=== PATIENT | female | born 1955 | race Caucasian/White ===

== ENCOUNTER 2016-11-10 15:12 | Day surgery (SDC) | payer OTHER ==
[~2016-11-10 15:12] MED LIST: EPINEPHRINE INJ 1 MG/10 ML DISP.SYRIN ONE; FLUMAZENIL INJ 0.5 MG/5 ML VIAL IV ONE; GLUCAGON,HUMAN RECOMB 1 MG INJ ONE; NALOXONE HCL INJ/PF 0.4 MG/1 ML SDV ONE
[2016-11-10] MEDS: MIDAZOLAM 2 MG/2 ML INJ ONE ×3 (16:34→16:43)
[2016-11-10] MEDS: FENTANYL CITRATE INJ/PF 100 MCG/2 ML AMPUL ONE ×2 (16:37→16:48)
--- NOTE | 2016-11-10 17:17 | Operative Report ---
Operative Report DATE OF SURGERY: 11/10/16 Operative Report: Pre-op diagnosis: Abdominal pain with history of diverticulosis Post-op diagnosis: 1. Left-sided diverticulosis 2. Cecal and ascending colon polyps 3. Redundant colon Surgery: Colonoscopy with polypectomy Medications: Versed 4mg, Fentanyl 150mcg IV push Tissue removed: Colon polyps Procedure: After informed consent obtained from patient, conscious sedation was achieved. A digital rectal examination was performed and this was unremarkable. The colonoscope was inserted into the rectum and advanced to the cecum. The appendiceal orifice and the terminal ileum were both identified. The mucosa was examined into details as the colonoscope was slowly pulled out of the patient. The endoscope was retroflexed in the rectum. Patient tolerated the procedure well. Findings Cecum: 4 mm polyp removed with the cold snare Ascending colon: 11 mm polyp removed from the distal ascending colon with a hot snare Transverse colon: Normal Descending colon: Multiple diverticuli Sigmoid colon: Multiple diverticuli with redundancy Rectum: Normal except for internal hemorrhoids Plan: Await pathology. Repeat colonoscopy in 3 years OPERATION: .
--- NOTE | 2016-11-10 17:18 | PDOC DISCHARGE SUMMARY ---
Discharge Summary (SDC) - Discharge Final Diagnosis: Colon polyps and diverticulosis Date of Surgery: 11/10/16 Condition: Stable Treatment or Instructions: None Discharge Diet: As Tolerated Discharge Activity: Activity As Tolerated Report the Following to Your Physician Immediately: Nausea, Vomiting, Increase in Pain, Swelling, Warmth
[2016-11-10 18:12] VITALS: BP 107/63
== END 2016-11-10 18:15 | disposition home or self-care (01) ==
LOC: END 15:12
PROVIDERS: ATTEND Internal Medicine Gastroenterology
PROC: 0DBK8ZX Excision of Ascending Colon, Via Natural or Artificial Opening Endoscopic, Diagnostic (ICD-10-PCS; 2016-11-10)
PROC: 0DBH8ZX Excision of Cecum, Via Natural or Artificial Opening Endoscopic, Diagnostic (ICD-10-PCS; principal; 2016-11-10 15:45)
DX: K57.30 Diverticulosis of large intestine without perforation or abscess without bleeding (principal); D12.0 Benign neoplasm of cecum; D12.2 Benign neoplasm of ascending colon; K64.8 Other hemorrhoids; E03.9 Hypothyroidism, unspecified; K21.9 Gastro-esophageal reflux disease without esophagitis; F41.9 Anxiety disorder, unspecified; I38 Endocarditis, valve unspecified; Z79.899 Other long term (current) drug therapy; Z88.0 Allergy status to penicillin
CPT/HCPCS: 45385; 88305 ×2; J2250; J3010; J0171; J1610; J2310; J3490